=== PATIENT | female | born 1985 | race Caucasian/White ===

== ENCOUNTER 2016-07-08 14:29 | Emergency (ER) | payer OTHER ==
[~2016-07-08] VITALS: Ht 162.6 cm; Wt 65.8 kg
[2016-07-08 14:30] VITALS: BP 106/64
== END 2016-07-08 15:29 | disposition home or self-care (01) ==
LOC: ER 14:29
DX: M79.605 Pain in left leg (principal); R25.2 Cramp and spasm

== ENCOUNTER 2016-09-14 12:02 | Emergency (ER) | payer OTHER ==
[~2016-09-14] VITALS: Ht 160 cm; Wt 64.4 kg
[2016-09-14] MEDS ORDERED: TRINATE TABLET1 TAB PO (12:08)
[2016-09-14] MEDS ORDERED: DHA100 MG PO (12:08)
[2016-09-14] MEDS ORDERED: IRON325 PO (12:08)
[2016-09-14] MEDS ORDERED: IBUPROFEN 200200 M1 PO (12:08)
[2016-09-14 13:08] LABS: HEMATOCRIT 36.4 % (37.0-47.0); HEMOGLOBIN 12.2 gm/dL (12.0-15.0); MCH 29.1 pg (26.0-34.0); MCHC 33.6 g/dL (28.0-37.0); MCV 86.9 fL (80.0-100.0); PLATELET COUNT 199 thou/uL (150-400); RBC 4.19 mil/uL (4.20-5.00); RDW 13.5 % (10.5-14.5); WBC 6.8 thou/uL (4.0-11.0)
[2016-09-14 13:10] LABS: MANUAL DIFF YES
[2016-09-14 13:15] LABS: CALCIUM 9.2 mg/dL (8.5-10.1); CREATININE 0.8 mg/dL (0.6-1.0); POTASSIUM 3.8 mmol/L (3.5-5.1)
[2016-09-14 13:16] LABS: URINE BILIRUBIN NEGATIVE (Negative); URINE BLOOD NEGATIVE (Negative); URINE COLOR YELLOW; URINE GLUCOSE-RANDOM* NEGATIVE (Negative); URINE KETONES NEGATIVE (Negative); URINE NITRITE NEGATIVE (Negative); URINE PROTEIN (DIPSTICK) NEGATIVE (Negative); URINE SPECIFIC GRAVITY 1.025 (1.003-1.035); URINE UROBILINOGEN 0.2 E.U./dl (0.2-1.0)
[2016-09-14 13:21] LABS: TOTAL BILIRUBIN 0.3 mg/dL (<0.1-1.0); TOTAL PROTEIN 7.8 g/dL (6.4-8.2)
[2016-09-14 14:18] LABS: ABSOLUTE NEUTROPHILS 6.1 thou/uL (1.4-8.2); TOTAL CELL COUNT 100
[2016-09-14 14:19] LABS: ANISOCYTOSIS SLIGHT
[2016-09-14] MEDS ORDERED: AUGMENTIN 875875 MG PO (16:33)
[2016-09-14 17:51] VITALS: BP 110/56
== END 2016-09-14 17:52 | disposition home or self-care (01) ==
LOC: ER 12:02
PROVIDERS: Physician Assistant
DX: J02.9 Acute pharyngitis, unspecified (principal)

== ENCOUNTER 2018-06-02 19:42 | Emergency (ER) | payer OTHER ==
[~2018-06-02] VITALS: Ht 160 cm; Wt 57.6 kg
[~2018-06-02 19:42] MED LIST: AUGMENTIN 875875 MG PO; DHA100 MG PO; IBUPROFEN 200200 M1 PO; IRON325 PO; TRINATE TABLET1 TAB PO
[2018-06-02 19:44] VITALS: BP 103/74
[2018-06-02 20:38] LABS: URINE BILIRUBIN NEGATIVE (Negative); URINE BLOOD NEGATIVE (Negative); URINE CLARITY SL CLOUDY; URINE COLOR YELLOW; URINE GLUCOSE-RANDOM* NEGATIVE (Negative); URINE KETONES NEGATIVE (Negative); URINE LEUKOCYTES-REFLEX NEGATIVE (Negative); URINE NITRITE-REFLEX NEGATIVE (Negative); URINE PROTEIN (DIPSTICK) NEGATIVE (Negative); URINE SPECIFIC GRAVITY 1.015 (1.005-1.035); URINE UROBILINOGEN 0.2 E.U./dl (0.2-1.0)
== END 2018-06-02 21:04 | disposition left against medical advice (07) ==
LOC: ER 19:42
PROVIDERS: Nurse Practitioner Family
DX: R42 Dizziness and giddiness (principal); Z53.21 Procedure and treatment not carried out due to patient leaving prior to being seen by health care provider